=== PATIENT | female | born 1945 | race Caucasian/White ===

== ENCOUNTER 2023-02-18 00:15 | Day surgery (SDC) | payer MEDICARE, SELFPAY ==
[2023-02-03 12:13] VITALS: BMI 24.2
--- NOTE | 2023-02-17 20:03 | P.HP_ITS ---
History of Present Illness History of Present Illness Consent: Risks, benefits, and alternatives have been discussed and questions answered. Patient agrees to proceed with procedure. Chief complaint: neoplasm screening Narrative: Justine Moody is a 77 year old female referred for colon cancer screening Review of Systems Review of Systems: All systems reviewed & are unremarkable except as noted in HPI and below [facility] Social History Social History Smoking status: Never smoker Alcohol intake: current Alcohol use details: few times a week Substance use: never Substance use type: does not use Living arrangements: with family Spiritual care concerns: No Meds Home Medications and Allergies Home Medications Medication Instructions Recorded Confirmed Type Vitamin D3 1 tab-cap BYMOUTH DAILY 02/03/23 02/03/23 History amlodipine 5 mg tablet 5 mg PO DAILY 02/03/23 02/03/23 History aspirin 1 tab-cap PO DAILY 02/03/23 02/03/23 History atorvastatin 20 mg tablet 20 mg PO DAILY 02/03/23 02/03/23 History levothyroxine 125 mcg tablet 125 mcg PO DAILY 02/03/23 02/03/23 History metoprolol succinate 25 mg 25 mg PO DAILY 02/03/23 02/03/23 History tablet,extended release 24 hr nitroglycerin 0.4 mg sublingual 0.4 mg sublingual DAILY 02/03/23 02/03/23 History tablet Allergies Allergy/AdvReac Type Severity Reaction Status Date / Time Penicillins Allergy Hives Verified 02/18/23 10:10 Sulfa (Sulfonamide Allergy Hives Verified 02/18/23 10:10 Antibiotics) Exam Const: General: alert Orientation/consciousness: patient oriented x3 Resp: Auscultation: clear to auscultation bilaterally Cardio: Rhythm: regular rhythm GI: GI Palp: Yes Soft to palpation and No Tenderness to palpation present (GI) Neuro: General: patient oriented x3 Assessment and Plan Assessment and plan (1) Colon cancer screening: Code(s): Z12.11 - Encounter for screening for malignant neoplasm of colon Status: Acute Assessment and Plan: Colonoscopy with possible biopsy or polypectomy or cautery or injection of substances.
[2023-02-18 10:11] VITALS: BP 142/70; PULSE 74; RESP 22; TEMP 36.2; O2SAT 99
[2023-02-18] MEDS: LACTATED RINGERS 1,000 ML 150 ML IV CONT (10:27)
--- NOTE | 2023-02-18 11:05 | P.PNAN_ITS ---
Anes - Initial Pre Proc Eval Procedure: Operation Date: 02/18/23 11:30 Proposed Procedures p Screening Colonoscopy - Edwin Shankar MD Date/Time: 02/18/23 11:05 Surgeon: Edwin Shankar MD Pre Op Diagnosis: neoplasm screening Patient Data Age: 77 Gender: F Height: 1.68 m Weight: 66.5 kg Last Vital Signs Temp 97.1 F L 02/18/23 10:11 Pulse 74 02/18/23 10:11 Resp 22 H 02/18/23 10:11 BP 142/70 H 02/18/23 10:11 Pulse Ox 99 02/18/23 10:11 O2 Del Method Room Air 02/18/23 10:11 Allergies Allergy/AdvReac Type Severity Reaction Status Date / Time Penicillins Allergy Hives Verified 02/18/23 10:10 Sulfa (Sulfonamide Allergy Hives Verified 02/18/23 10:10 Antibiotics) Home Medications Medication Instructions Recorded Confirmed Type Vitamin D3 1 tab-cap BYMOUTH DAILY 02/03/23 02/03/23 History amlodipine 5 mg tablet 5 mg PO DAILY 02/03/23 02/03/23 History aspirin 1 tab-cap PO DAILY 02/03/23 02/03/23 History atorvastatin 20 mg tablet 20 mg PO DAILY 02/03/23 02/03/23 History levothyroxine 125 mcg tablet 125 mcg PO DAILY 02/03/23 02/03/23 History metoprolol succinate 25 mg 25 mg PO DAILY 02/03/23 02/03/23 History tablet,extended release 24 hr nitroglycerin 0.4 mg sublingual 0.4 mg sublingual DAILY 02/03/23 02/03/23 History tablet Patient hx anesthesia problems: none Family hx anesthesia problems: none Results Review: All pre-operative results and documents have been reviewed as part of the pre- operative evaluation. FORMERLY [facility], [facility]–1983 Social History Social History Smoking status: Never smoker Alcohol intake: current Alcohol use details: few times a week Substance use: never Substance use type: does not use Living arrangements: with family Spiritual care concerns: No Anes - Eval Final PreProcedure Day of Procedure 02/18/23 11:05 Patient weight: normal Heart: regular rate and rhythm Lungs: clear to auscultation Airway: Mallampati scale class II Neurological: alert and oriented Last oral intake: >/= 8 hours ASA classification: III Emergent: no Anesthetic plan: proceed Anesthesia type and monitoring: general GIVS and standard monitoring Results Review: All pre-operative results and documents have been reviewed as part of the pre- operative evaluation. Informed Consent: The patient's anesthetic plan and its attendant risks and benefits were discussed with the patient/family/POA. Questions were solicited and answers provided to the satisfaction of the patient/family/POA.
[2023-02-18] MEDS: SIMETHICONE ORAL SUSPENSION 20 MG/0.3 ML 30 ML BOTTLE 0.6 ML IRRIGATION (11:21)
[2023-02-18 11:28] VITALS: BP 84/47; PULSE 79; RESP 21; O2SAT 95
[2023-02-18 11:38] VITALS: BP 73/43; PULSE 81; RESP 22; O2SAT 97
[2023-02-18 11:48] VITALS: BP 100/67; PULSE 79; RESP 23; O2SAT 98
== END 2023-02-18 11:56 | disposition home or self-care (01) ==
PROVIDERS: PCP Internal Medicine; Visit Provider Internal Medicine Gastroenterology
PROC: 0DJD8ZZ Inspection of Lower Intestinal Tract, Via Natural or Artificial Opening Endoscopic (ICD-10-PCS; CPT 45378; principal; 2023-02-18 11:30)
DX: Z12.11 Encounter for screening for malignant neoplasm of colon (principal); D12.8 Benign neoplasm of rectum; K64.8 Other hemorrhoids
CPT/HCPCS: 45380; 88305; J2704; J7120

== ENCOUNTER 2024-06-25 15:57 | Emergency (ER) | payer MEDICARE, SELFPAY ==
--- NOTE | 2024-06-25 16:01 | ECG_ITS ---
Test Date: 2024-06-25 16:05:12 Measurements Intervals [place] Rate: 101 P: 56 WA: 216 QRS: -15 QRSD: 91 T: 30 QT: 348 QTc: 451 Interpretive Statements SINUS TACHYCARDIA WITH FIRST DEGREE AV BLOCK BASELINE ARTIFACT- I, II, AVR BORDERLINE ECG No previous ECG available for comparison Electronically Signed On 06-25-2024 17:16:17 CDT by Atif De Guzman D.O.
[2024-06-25 16:08] VITALS: BP 154/73; PULSE 107; RESP 18; TEMP 36.3; O2SAT 100
[2024-06-25 18:28] VITALS: BP 127/74; PULSE 96; RESP 18; TEMP 36.4; O2SAT 100
--- NOTE | 2024-06-25 19:27 | PC.NURSE ---
192-PATIENT STATES SHE WANTS TO GO HOME. PATIENT ENCOURAGE TO STAY FOR FURTHER EVALUATION BUT PATIENT DECLINES. PATIENT LEFT BEFORE SEEING ANY PROVIDER.
== END 2024-06-25 22:30 | disposition left against medical advice (07) ==
PROVIDERS: Emergency Provider Emergency Medicine; PCP Internal Medicine
DX: R00.0 Tachycardia, unspecified (principal)
CPT/HCPCS: 93005; 99199

== ENCOUNTER 2025-03-03 12:54 | Emergency (ER) | payer MEDICARE, SELFPAY ==
--- NOTE | 2025-03-03 13:02 | ED_ITS ---
HPI - URI/Sore Throat General Chief Complaint: Upper Respiratory Infection Stated Complaint: SORE THROAT Time Seen by Provider: 03/03/25 12:55 Source: patient Mode of arrival: ambulatory Limitations: no limitations History of Present Illness HPI Narrative: Patient is a 71-year-old female who presents with sore throat for 8 days with worsening congestion, sinus pressure and headache starting yesterday. Denies any fever, chills, nausea, vomiting, diarrhea. Has taken [id number] medication with no relief. Related Data Home Medications ?Medication ?Instructions ?Recorded ?Confirmed ?Last Taken ?Type Vitamin D3 1 tab-cap BYMOUTH DAILY 02/03/23 03/03/25 Unknown History amlodipine 5 mg tablet 5 mg PO DAILY 02/03/23 03/03/25 Unknown History atorvastatin 20 mg tablet 20 mg PO DAILY 02/03/23 03/03/25 Unknown History metoprolol succinate 25 mg 25 mg PO DAILY 02/03/23 03/03/25 Unknown History tablet,extended release 24 hr nitroglycerin 0.4 mg sublingual 0.4 mg sublingual DAILY 02/03/23 03/03/25 Unknown History tablet calcium carbonate (Calcium 600) 600 mg PO DAILY 03/03/25 03/03/25 Unknown History methimazole 10 mg tablet 10 mg PO BID 03/03/25 03/03/25 Unknown History Allergies Allergy/AdvReac Type Severity Reaction Status Date / Time Penicillins Allergy Hives Verified 03/03/25 13:02 Sulfa (Sulfonamide Allergy Hives Verified 02/18/23 10:10 Antibiotics) Review of Systems Review of Systems: All systems reviewed & are unremarkable except as noted in HPI and below Constitutional: Constitutional: Denies chills, Denies fatigue, Denies fever (s), Denies headache(s), Denies malaise and Denies weakness Eyes: Eyes: Denies blurry vision, Denies itchy eyes and Denies loss of vision ENT: Denies otalgia, Denies headache(s), Denies nasal congestion, Reports sinus pain, Reports sinus pressure and Reports sore throat Cardiovascular: Cardiovascular: Denies chest pain, Denies irregular heart rhythm and Denies dyspnea Respiratory: Respiratory: Denies cough and Denies dyspnea Gastrointestinal: Gastrointestinal: Denies abdominal pain, Denies diarrhea, Denies nausea and Denies vomiting Musculoskeletal: Musculoskeletal: Denies back pain, Denies myalgias and Denies arthralgias Integumentary/Breasts: Skin/Breast: Denies pruritus and Denies rash Neurologic: Denies headache(s), Denies loss of vision and Denies weakness Psychiatric: Psychiatric: Reports no additional psychiatric complaints Endocrine: Endocrine: Denies fatigue Allergic/Immunologic: Allergic/Immunologic: Denies itchy eyes PMFSH Social History Social History Smoking status: Never smoker Alcohol intake: current Alcohol use details: few times a week Substance use: never Substance use type: does not use Living arrangements: with family Spiritual care concerns: No Comments At time of signature, agree with nursing past medical, surgical, social and family history. There is no relevant family history pertinent to the presenting complaint. Exam Const: General: cooperative, healthy appearing, comfortable, no acute distress and well nourished Nutritional Appearance: well nourished Orientation/consciousness: patient oriented x3 Limitations: no limitations HENMT: Head: normal to inspection, normocephalic and atraumatic Ears: hearing grossly normal bilaterally, external ears normal, TM's normal bilaterally, EAC's normal and no periauricular adenopathy Face/Nose/Sinus: Normal external nose present, Abnormal mucous membranes and turbinates present erythematous bilateral and diffuse, normal facial exam, face symmetric and Facial tenderness on exam of face and sinuses Face and sinus: normal facial exam and face symmetric Mouth: Yes Normal oral and palatal mucosa present, Yes lip normal, Yes tongue normal, Yes Normal salivary glands and ducts present, Yes oropharynx normal and Yes moist mucous membranes Teeth and gingiva: dentition normal Throat: posterior oropharynx normal, tonsils normal and uvula midline Eyes: General: appearance normal, both eyes and all related structures Alignment and Position: alignment normal and position normal Periorbital: periorbital findings normal Eyelids: eyelids normal Pupils: Equal, round and reactive pupils present Neck: Neck: normal visual inspection, full ROM, no lymphadenopathy and supple Chest: Chest palpation & inspection: normal inspection of the chest and normal palpation of entire chest wall Resp: Effort & Inspection: normal respiratory effort and able to speak in complete sentences Auscultation: clear to auscultation bilaterally, no crackles, no rales, no rhonchi and no wheezes Cardio: Rate: regular rate Rhythm: regular rhythm Heart sounds: S1 normal heart sound present and S2 normal heart sound present GI: Inspection: normal to inspection Skin: General skin exam: normal color and no rashes or lesions noted Neuro: General: patient oriented x3 and moves all extremities Cranial nerves: Yes Equal, round and reactive pupils present Speech: normal speech Gait exam (Neuro): Normal gait present Extrem: General: normal to inspection, full ROM and no edema Psych: Appearance: grossly normal and well kempt Mental Status: mental status grossly normal Speech and movement: Normal speech and movement present Affect: normal affect Attitude: cooperative Thought process: Normal thought process present Course Course Emergency Course: Discharge instructions reviewed with patient, as well as provided in writing per nursing staff. The instructions also include specific and strict return/GO TO THE ER as well as f/u information. All questions have been answered, and the patient deny any further questions with discharge and discharge plan. Portions of this record may have been created with voice recognition software Level of Care: Express Care Visit Vital Signs Vital signs: Vital Signs Temperature 36.2 C L 03/03/25 13:10 Pulse Rate 71 03/03/25 13:10 Respiratory Rate 16 03/03/25 13:10 Blood Pressure 140/77 03/03/25 13:10 Pulse Oximetry 100 03/03/25 13:10 Temperature 36.2 C L 03/03/25 13:10 Pulse Rate 71 03/03/25 13:10 Respiratory Rate 16 03/03/25 13:10 Blood Pressure 140/77 03/03/25 13:10 Pulse Oximetry 100 03/03/25 13:10 Reviewed MDM - URI/Sore Throat MDM Narrative Medical decision making narrative: Pt well hydrated appearing, in no respiratory distress, hemodynamically stable. Recommend supportive care. The patient is stable at time of discharge the clinical impression was discussed and the patient was given the opportunity to ask questions, which were addressed as completely as possible given the information available at present. Anticipatory guidance and return to care precautions were discussed and the importance of primary care follow-up was s tressed and encouraged. The patient voiced understanding of the plan, indications to return, and the need for follow-up. Exam findings show no acute concerns or changes Patient is appropriate for outpatient treatment and follow-up. Differential diagnosis considered: Ball virus, strep pharyngitis, allergic rhinitis, upper respiratory tract infection, sinusitis, rhinosinusitis, nasopharyngitis. viral pharyngitis, otitis media, otitis externa, otitis effusion, foreign body, cerumen impaction, viral syndrome, and influenza.? Medical Records Attestation: I reviewed the patient's medical records. Lab Data Labs: Lab Results 03/03/25 Range/Units 13:21 POC Grp A Strep Screen Negative (Negative) Discharge Plan Discharge Clinical Impression: Sinusitis Qualifiers: Sinusitis location: frontal Chronicity: acute Recurrence: non-recurrent Qualified Code(s): J01.10 - Acute frontal sinusitis, unspecified Patient Disposition: Home Condition: Stable Instructions: Sinusitis (ED) Additional Instructions: Take antibiotics as prescribed Symptomatic treatment of a sinus infection aims to relieve symptoms. These treatments do not shorten the duration of illness. Nonprescription pain medications, such as acetaminophen (eg, Tylenol) or ibuprofen (eg, Motrin, Advil), are recommended for pain. Flushing the nose and sinuses with a saline solution several times per day has been proven to decrease pain associated with congestion and shorten the duration of symptoms. Nasal steroids (such as Flonase, 2 sprays in each nostril daily) can help to reduce swelling inside the nose, usually within two to three days. These drugs have few side effects and relieve symptoms in most people. Oral decongestants (pseudoephedrine and phenylephrine) may be helpful if you have associated symptoms of ear pain or fullness. Nasal decongestant sprays, including oxymetazoline (Afrin) and phenylephrine (Gage-Synephrine), can be used to temporarily treat congestion. However, these sprays should not be used for more than two to three days due to the risk of rebound congestion (when the nose becomes congested constantly unless the medication is used repeatedly), possible addiction, and long-term consequences of frequent use, including persistent nasal dryness and crusting, which is very difficult to treat once it has developed. Medications to thin secretions (such as guaifenesin) may help to clear mucus. Please follow-up with your primary care doctor in the next 1-2 days. If you cannot follow-up with your primary care doctor please go to the ED for any urgent issues. If you have any worsening of symptoms or any other concerns please go to the ED immediately. Patient Language: Iranian Prescriptions: New doxycycline monohydrate 100 mg tablet 100 mg PO BID 10 Days Qty: 20 0RF fluticasone propionate [Flonase Allergy Relief] 50 mcg/actuation spray,suspension 1 spray intranasal DAILY Qty: 16 0RF Rx Instructions: administer into each nostril No Action methimazole 10 mg tablet 10 mg PO BID calcium carbonate [Calcium 600] 600 mg calcium (1,500 mg) tablet 600 mg PO DAILY atorvastatin 20 mg tablet 20 mg PO DAILY amlodipine 5 mg tablet 5 mg PO DAILY nitroglycerin 0.4 mg tablet, sublingual 0.4 mg sublingual DAILY metoprolol succinate 25 mg tablet extended release 24 hr 25 mg PO DAILY Vitamin D3 1 tab-cap BYMOUTH DAILY Follow-up/Referrals: Yudi,Memo Jimenez MD [Primary Care Provider] - 3 Days Time of Disposition: 13:41
[2025-03-03 13:10] VITALS: BP 140/77; PULSE 71; RESP 16; TEMP 36.2; O2SAT 100
[2025-03-03 13:23] LABS: EDSTREPNEGPOS1 Negative (Negative)
== END 2025-03-03 13:46 | disposition home or self-care (01) ==
PROVIDERS: Emergency Provider Nurse Practitioner Family; PCP Internal Medicine
DX: J01.10 Acute frontal sinusitis, unspecified (principal)
CPT/HCPCS: 87081; 87880; 99213; G0463